=== PATIENT | female | born 1930 | race Caucasian/White ===

== ENCOUNTER → 2016-12-26 | Outpatient (CLI) | payer OTHER | LOC: BMCIMAGING 15:34 | PROVIDERS: ATTEND Internal Medicine Rheumatology | DX: M17.11 Unilateral primary osteoarthritis, right knee (principal) ==

== ENCOUNTER 2017-05-03 17:06 | Emergency (ER) | payer OTHER ==
[2017-05-03 17:17] VITALS: BP 162/92; PULSE 92; RESP 18; TEMP 98.1; O2SAT 94
--- NOTE | 2017-05-03 17:44 | EDPHY ---
H & P Stated Complaint: LEFT HIP PAIN AFTER A FALL Time Seen by Provider: 05/03/17 17:44 HPI/ROS: CHIEF COMPLAINT: Fall, groin pain, knee pain HISTORY OF PRESENT ILLNESS: Patient reports with her daughter at bedside. The patient was walking at her residence today when she tripped and fell. She was walking slowly a ground level and brace her fall with her left arm and her left hip. She denies striking her head. She denies loss of consciousness. No neck pain, headache, chest or back pain. Her only complaints are pain left groin pain left knee. The pain left groin is minimal at rest and when nonweightbearing. It is moderate to severe when she attempts to stand up. Same applied to the left knee. There is no numbness or tingling. No injury anywhere else. Difficulty ambulating due to the pain. Reports extensive osteoarthritis and rheumatoid arthritis with bilateral hip arthroplasties. Also partial left knee arthroplasty. No other associated or modifying factors. No use of anticoagulants. REVIEW OF SYSTEMS: Ten systems reviewed and are negative unless otherwise noted in the HPI PAST MEDICAL HISTORY: Osteoarthritis, rheumatoid arthritis, hip arthroplasty bilaterally, knee arthroplasty SOCIAL HISTORY: Nonsmoker. Lives in independent living here locally FAMILY HISTORY: Noncontributory EXAMINATION General Appearance: Alert, no distress Head: normocephalic, atraumatic. No Mancia sign. No raccoon eyes. No signs of trauma. Eyes: Pupils equal and round, no conjunctival pallor or injection ENT, Mouth: Mucous membranes moist. Airway patent. Bilateral arcus senilis Neck: Normal inspection, supple, non-tender. No crepitus, step-off or deformity. Respiratory: Lungs are clear to auscultation Cardiovascular: Regular rate and rhythm. No murmur. Pulses intact distally with symmetric DP and PT pulses 2+ Gastrointestinal: Abdomen is soft and nontender Back: non-tender, no bony abnormalities Neurological: GCS 15. A&O, nonfocal, strength is symmetric in all 4 limbs. Sensory intact in lower extremities bilaterally. Skin: Warm and dry, no rash. No lacerations abrasions or contusions Extremities: Nontender, no pedal edema Psychiatric: Mood and affect normal DIFFERENTIAL DIAGNOSES: Including but not limited to fracture, dislocation, strain, sprain, contusion, hematoma MDM: 5:45 p.m. Mechanical fall with left groin and left knee pain. No trauma to the head, neck , back, abdomen. No headache or neck pain. Complaints of pain only in the left groin and knee. Multiple previous orthopedic an ongoing rheumatologic injuries in pain. X-rays have been ordered. I suggested that we obtain a CT scan of the head and cervical spine but she has declined. She is adamant that she did not strike her head and does not want CT scans performed. 6:00 p.m. X-rays as read by me reveal extensive degenerative changes of all areas of x- ray. There is left hip arthroplasty with hardware that appears to be intact. There may be a fracture of the inferior iliac spine or ischium. Difficult to tell on this x-ray. No obvious fracture on the knee x-ray as read by me. Radiologist's interpretations are pending. 6:50 p.m. I discussed the x-rays with radiologist Dr. Jacobs. There are extensive chronic changes but no obvious acute injury. I re-evaluated the patient. I informed her that there are no clear fractures and I would like to ambulate her see how she tolerates her pain. She will be ambulated with assistance. 6:57 p.m. Patient has ambulated without any difficulty. She wants to be discharged home. She is stable on her feet with her cane. I did offer admission the hospital for evaluation for physical therapy, but she has a physical therapy appointment at home tomorrow. She would like to be discharged home. I do feel she is stable to do so. Her daughter is with her and is comfortable taking her home at this time. ER precautions discussed. She will follow up with primary care physician and her established orthopedist Dr. Reyes. SUPERVISION: Patient was evaluated in conjunction with the supervising physician. Please see their note for details. - Personal History Current Tetanus/Diphtheria Vaccine: Unsure Tetanus Vaccine Date: 2012 - Medical/Surgical History Hx Asthma: No Hx Chronic Respiratory Disease: No Hx Diabetes: No Hx Cardiac Disease: No Hx Renal Disease: No Hx Cirrhosis: No Hx Alcoholism: No Hx HIV/AIDS: No Hx Splenectomy or Spleen Trauma: No Other PMH: LEFT HIP FX AND REPAIR. G[place], RA, OA, PNA, [place] - Social History Smoking Status: Former smoker Constitutional: Initial Vital Signs Temperature (C) 98.1 F 05/03/17 17:13 Heart Rate 92 05/03/17 17:13 Respiratory Rate 18 05/03/17 17:13 Blood Pressure 162/92 H 05/03/17 17:13 O2 Sat (%) 94 05/03/17 17:13 O2 Delivery Mode Room Air Allergies/Adverse Reactions: promethazine HCl [From Phenergan] Allergy (Severe, Verified 05/03/17 17:18) cyclobenzaprine HCl [From Flexeril] Allergy (Intermediate, Verified 05/03/17 17: 18) gluten [Gluten] Allergy (Mild, Verified 05/03/17 17:18) Other-Enter Comments Sulfa (Sulfonamide Antibiotics) Allergy (Mild, Verified 05/03/17 17:18) Hives Wheat Containing *RETIRED-05/20/12 [Wheat Containing Prod] Allergy (Mild, Verified 05/03/17 17:18) Other-Enter Comments Home Medications: Medication Instructions Recorded Calcitriol [Calcitriol (*)] 0.25 mcg PO DAILY 06/19/14 Folic Acid [Folic Acid 1 MG (*)] 1 mg PO DAILY 06/19/14 Hydroxychloroquine Sulfate 200 mg PO BID 06/19/14 [Plaquenil 200 mg (*)] Multivitamins [Multivitamin (*)] 1 each PO DAILY 06/19/14 [place] 3/Dha/Epa/Vitamin D3 1 each PO DAILY 06/19/14 [[place]-3 + Vitamin D3 Softgel] Omeprazole [Prilosec 20 mg] 20 mg PO DAILY 06/19/14 inFLIXimab [Remicade Inj 100 mg 0 mg IV AD 06/19/14 (*)] Enoxaparin [Lovenox] 30 mg SC BID #20 syr 07/03/14 Hydrocodone/APAP 5/325 [[place] 1 - 2 tab PO Q4 PRN #30 tab 07/06/14 5/325 (*)] amLODIPine BESYLATE [Norvasc 5 mg 5 mg PO DAILY #30 tab 07/06/14 (*)] traMADol [Ultram 50 mg (*)] 50 mg PO Q4 #30 tab 07/06/14 amLODIPine BESYLATE [Norvasc 5 mg 5 mg PO HS PRN #30 tab 07/07/14 (*)] Medical Decision Making - Diagnostics Imaging Results: Imaging Impressions Hip X-Ray 05/03/17 17:43 Impression: 1. No definite acute osseous findings, with contour irregularity of the left superior pubic ramus grossly stable since 2013, suggesting sequela of old injury. 2. Old healed right pubic fracture. Findings discussed with Bryson Jacobs PA-C, on May 03, 2017 at 1825 hours. Knee X-Ray 05/03/17 17:43 Impression: No acute osseous findings. Departure - Departure Disposition: Home, Routine, Self-Care Clinical Impression: Fall Qualifiers: Encounter type: initial encounter Qualified Code(s): W19.XXXA - Unspecified fall, initial encounter Hip pain Qualifiers: Laterality: left Qualified Code(s): M25.552 - Pain in left hip Knee pain, acute Qualifiers: Laterality: left Qualified Code(s): M25.562 - Pain in left knee Condition: Good Instructions: Knee Sprain (ED), Hip Sprain (ED) Additional Instructions: 1. Follow up with your established primary care physician and orthopedist. 2. Return to the ER for any worsening pain, difficulty walking with her cane Referrals: Codie Pizarro MD [Primary Care Provider] - As per Instructions Colt Fitch MD [Medical Doctor] - As per Instructions
== END 2017-05-03 19:03 | disposition home or self-care (01) ==
DX: S79.912A Unspecified injury of left hip, initial encounter (principal); S89.92XA Unspecified injury of left lower leg, initial encounter; Z87.891 Personal history of nicotine dependence; W01.0XXA Fall on same level from slipping, tripping and stumbling without subsequent striking against object, initial encounter; Y92.009 Unspecified place in unspecified non-institutional (private) residence as the place of occurrence of the external cause; Y93.01 Activity, walking, marching and hiking

== ENCOUNTER 2017-07-31 08:10 | Emergency (ER) | payer OTHER ==
[2017-07-31 08:16] VITALS: BP 152/88; PULSE 84; RESP 16; TEMP 97.9; O2SAT 92
--- NOTE | 2017-07-31 08:39 | EDPHY ---
HPI/HX/ROS/PE/MDM Narrative: CHIEF COMPLAINT: Rash HPI: The patient is an 86 y/o female complaining of rash on her scalp onset Sunday, two days ago. On Sunday, she began experiencing tooth pain and took clindamycin. She accidentally took a double dose for a few days. On Sunday, she noticed a rash on the right side of her scalp and the corner of her right eye. Initially the rash was not painful but became painful over the past couple days. She describes the pain as stinging. She denies any pain or visual changes in her right eye. She denies recent cold or fever. REVIEW OF SYSTEMS: Aside from elements discussed in the HPI, a comprehensive 10-point review of systems was reviewed and is negative. PMH: Multiple joint surgeries and replacements SOCIAL HISTORY: Daughter at bedside, lives in [place], retired PHYSICAL EXAM: General:Patient is alert, in no acute distress. ENT:Eyes are normal to inspection. ENT inspection normal. Neck: Normal inspection. Full range of motion. Respiratory:No respiratory distress. Breath sounds normal bilaterally. Cardiovascular: Regular rate and rhythm. Strong peripheral pulses. Normal cap refill. Abdomen:The abdomen is nontender to palpation. There are no peritoneal signs. There are normal bowel sounds. Back: Normal to inspection. No tenderness to palpation. Skin: Vesicular rash to the right forehead with the corner of the eye involved. Extremities: Normal appearance. Full range of motion. Neuro: Oriented x3. Normal motor function. Normal sensory function. MDM: This patient presents with signs and symptoms of Shingles. Although the rash is quite near her eye, she has no ocular symptoms whatsoever. I suspect her earlier dental pain was likely secondary to shingles rather than dental issue given coincidence of it being right upper molar, and I explained that she likely does not need to take clindamycin in addition to antivirals, but told her to discuss this with her dentist. General Time Seen by Provider: 07/31/17 08:23 Initial Vital Signs: Initial Vital Signs Temperature (C) 36.6 C 07/31/17 08:11 Heart Rate 84 07/31/17 08:11 Respiratory Rate 16 07/31/17 08:11 Blood Pressure 152/88 H 07/31/17 08:11 O2 Sat (%) 92 07/31/17 08:11 O2 Delivery Mode Nasal Cannula Allergies/Adverse Reactions: promethazine HCl [From Phenergan] Allergy (Severe, Verified 07/31/17 08:11) cyclobenzaprine HCl [From Flexeril] Allergy (Intermediate, Verified 07/31/17 08: 11) gluten [Gluten] Allergy (Mild, Verified 07/31/17 08:11) Other-Enter Comments Sulfa (Sulfonamide Antibiotics) Allergy (Mild, Verified 07/31/17 08:11) Hives Wheat Containing *RETIRED-05/20/12 [Wheat Containing Prod] Allergy (Mild, Verified 07/31/17 08:11) Other-Enter Comments Home Medications: Medication Instructions Recorded Calcitriol [Calcitriol (*)] 0.25 mcg PO DAILY 06/19/14 Folic Acid [Folic Acid 1 MG (*)] 1 mg PO DAILY 06/19/14 Hydroxychloroquine Sulfate 200 mg PO BID 06/19/14 [Plaquenil 200 mg (*)] Multivitamins [Multivitamin (*)] 1 each PO DAILY 06/19/14 [place] 3/Dha/Epa/Vitamin D3 1 each PO DAILY 06/19/14 [[place]-3 + Vitamin D3 Softgel] Omeprazole [Prilosec 20 mg] 20 mg PO DAILY 06/19/14 inFLIXimab [Remicade Inj 100 mg 0 mg IV AD 06/19/14 (*)] Enoxaparin [Lovenox] 30 mg SC BID #20 syr 07/03/14 Hydrocodone/APAP 5/325 [[place] 1 - 2 tab PO Q4 PRN #30 tab 07/06/14 5/325 (*)] amLODIPine BESYLATE [Norvasc 5 mg 5 mg PO DAILY #30 tab 07/06/14 (*)] traMADol [Ultram 50 mg (*)] 50 mg PO Q4 #30 tab 07/06/14 amLODIPine BESYLATE [Norvasc 5 mg 5 mg PO HS PRN #30 tab 07/07/14 (*)] Valacyclovir HCl [Valtrex] 1,000 mg PO TID #21 tab 07/31/17 Departure - Departure Disposition: Home, Routine, Self-Care Clinical Impression: Shingles Qualifiers: Herpes zoster complications: without complications Qualified Code(s): B02.9 - Zoster without complications Condition: Good Instructions: Shingles (ED) Additional Instructions: 1. Avoid contact with your rash. Wash your hands frequently, especially after touching your face. 2. If you feel like there is something in your eye return to the ED or visit an eye doctor. 3. Return to the ED for worsening of condition. Referrals: Codie Pizarro MD [Primary Care Provider] - As per Instructions Prescriptions: Valacyclovir HCl [Valtrex] 1,000 mg PO TID #21 tab Report Scribed for: Connor Chan Report Scribed by: Muna Stallworth Date of Report: 07/31/17 Time of Report: 08:47 Physician Review and Approval Statement: Portions of this note were transcribed by an ED scribe. I personally performed the history, physical exam, and medical decision making; and confirm the accuracy of the information in the transcribed note.
== END 2017-07-31 08:56 | disposition home or self-care (01) ==
DX: B02.9 Zoster without complications (principal)

== ENCOUNTER 2017-08-05 14:43 | Emergency (ER) | payer OTHER ==
[2017-08-05 14:51] VITALS: BP 132/80; PULSE 86; RESP 16; TEMP 98.8; O2SAT 96
--- NOTE | 2017-08-05 15:05 | EDPHY ---
HPI/HX/ROS/PE/MDM Narrative: CHIEF COMPLAINT: Right eye pain and redness HPI: The patient is an 86 y/o female complaining of right eye pain and redness. She was here on Sunday, 5 days ago, with pain and a mild rash on her forehead. She was diagnosed with shingles and prescribed Valtrex, which she took as prescribed. She was advised to come back to the ED if she experienced pain in her eye. Today she began to have pain in both her right eyelid and the inside of her eye. In her right eye it feels as if something is inside of it. Denies vision changes, fever, numbness or other pertinent symptoms. Prior medical records reviewed including ED visit with Dr. Chan on 07/31/17. REVIEW OF SYSTEMS: Aside from elements discussed in the HPI, a comprehensive 10-point review of systems was reviewed and is negative. PMH: Multiple joint surgeries and replacements SOCIAL HISTORY: Friends at bedside, lives in [place], retired PHYSICAL EXAM: General:Patient is alert, in no acute distress. ENT:Eyes are normal to inspection. Fluorescein exam shows no signs of lesions or streaming on cornea ENT inspection normal. Neck: Normal inspection. Full range of motion. Respiratory:No respiratory distress. Breath sounds normal bilaterally. Cardiovascular: Regular rate and rhythm. Strong peripheral pulses. Normal cap refill. Abdomen:The abdomen is nontender to palpation. There are no peritoneal signs. There are normal bowel sounds. Back: Normal to inspection. No tenderness to palpation. Skin: Vesicular rash consistent with shingles on right upper quadrant of face. Normal color. Warm and dry. Extremities: Normal appearance. Full range of motion. Neuro: Oriented x3. Normal motor function. Normal sensory function. ED Course: 1511: Preformed eye exam with Fluorecin dye; no signs of lesions or streaming on cornea Reassessed patient and discussed return precautions. Patient is comfortable with this plan. MDM: This patient with shingles returns for concern of eye pain. This obviously raises concern for zoster ophthalmicus, but thankfully flouroscein exam is normal. I think her eye pain is secondary to facial nerve rather than true ocular involvement. Patient already on antivirals and I see no evidence of vision-threatening disease. We discussed strict return precautions. General Time Seen by Provider: 08/05/17 14:58 Initial Vital Signs: Initial Vital Signs Temperature (C) 37.1 C 08/05/17 14:49 Heart Rate 86 08/05/17 14:49 Respiratory Rate 16 08/05/17 14:49 Blood Pressure 132/80 H 08/05/17 14:49 O2 Sat (%) 96 08/05/17 14:49 O2 Delivery Mode Room Air Allergies/Adverse Reactions: promethazine HCl [From Phenergan] Allergy (Severe, Verified 07/31/17 08:11) cyclobenzaprine HCl [From Flexeril] Allergy (Intermediate, Verified 07/31/17 08: 11) gluten [Gluten] Allergy (Mild, Verified 07/31/17 08:11) Other-Enter Comments Sulfa (Sulfonamide Antibiotics) Allergy (Mild, Verified 07/31/17 08:11) Hives Wheat Containing *RETIRED-05/20/12 [Wheat Containing Prod] Allergy (Mild, Verified 07/31/17 08:11) Other-Enter Comments Home Medications: Medication Instructions Recorded Calcitriol [Calcitriol (*)] 0.25 mcg PO DAILY 06/19/14 Folic Acid [Folic Acid 1 MG (*)] 1 mg PO DAILY 06/19/14 Hydroxychloroquine Sulfate 200 mg PO BID 06/19/14 [Plaquenil 200 mg (*)] Multivitamins [Multivitamin (*)] 1 each PO DAILY 06/19/14 [place] 3/Dha/Epa/Vitamin D3 1 each PO DAILY 06/19/14 [[place]-3 + Vitamin D3 Softgel] Omeprazole [Prilosec 20 mg] 20 mg PO DAILY 06/19/14 inFLIXimab [Remicade Inj 100 mg 0 mg IV AD 06/19/14 (*)] Enoxaparin [Lovenox] 30 mg SC BID #20 syr 07/03/14 Hydrocodone/APAP 5/325 [[place] 1 - 2 tab PO Q4 PRN #30 tab 07/06/14 5/325 (*)] amLODIPine BESYLATE [Norvasc 5 mg 5 mg PO DAILY #30 tab 07/06/14 (*)] traMADol [Ultram 50 mg (*)] 50 mg PO Q4 #30 tab 07/06/14 amLODIPine BESYLATE [Norvasc 5 mg 5 mg PO HS PRN #30 tab 07/07/14 (*)] Valacyclovir HCl [Valtrex] 1,000 mg PO TID #21 tab 07/31/17 Departure - Departure Disposition: Home, Routine, Self-Care Clinical Impression: Shingles Condition: Good Instructions: Shingles (ED) Additional Instructions: 1. It is okay to take Aleve and Tylenol 2. Continue taking your medications previously prescribed to you. 3. Avoid contact with your rash. Wash your hands frequently, especially after contacting your face. 4. Return to the ED for worsening of your condition. Referrals: Codie Pizarro MD [Primary Care Provider] - As per Instructions Report Scribed for: Connor Chan Report Scribed by: Sharla Blakely Date of Report: 08/05/17 Time of Report: 15:05 Physician Review and Approval Statement: Portions of this note were transcribed by an ED scribe. I personally performed the history, physical exam, and medical decision making; and confirm the accuracy of the information in the transcribed note.
[2017-08-05] MEDS ORDERED: FLUORESCEIN SODIUM 1 MG STRIP OP ONE ×2 (15:09→15:18)
[2017-08-05] MEDS ORDERED: PROPARACAINE 0.5% 15 ML OPHT DROP ONE (15:09)
[2017-08-05] MEDS ORDERED: PROPARACAINE 0.5% 15 ML OPHT DROP OP ONE (15:17)
== END 2017-08-05 15:21 | disposition home or self-care (01) ==
DX: B02.9 Zoster without complications (principal)

== ENCOUNTER → 2018-01-24 | Outpatient (CLI) | payer OTHER | LOC: FIMAGING 12:47 | PROVIDERS: ATTEND Physician Assistant | DX: M51.36 Other intervertebral disc degeneration, lumbar region (principal); M48.061 Spinal stenosis, lumbar region without neurogenic claudication; M43.16 Spondylolisthesis, lumbar region; M99.73 Connective tissue and disc stenosis of intervertebral foramina of lumbar region ==

== ENCOUNTER 2018-06-29 19:05 | Emergency (ER) | payer OTHER ==
--- NOTE | 2018-06-29 19:16 | EDPHY ---
H & P Time Seen by Provider: 06/29/18 19:15 HPI/ROS: CHIEF COMPLAINT: Fall from standing HISTORY OF PRESENT ILLNESS: Patient is an 87-year-old female who came out of the bar with friends and fell and landed on her face. She has an abrasion to her upper lip and dental fracture and a abrasion to the bridge of her nose and a small hematoma to her forehead. She did not get knocked out. She also complains of left lateral neck pain. She denies bony pain. She has a mild headache. No vision changes. No hearing changes. She has a small bruise to her right knee but denies other injuries. She has been ambulatory. Severity: Moderate Modifying factors: None REVIEW OF SYSTEMS: Constitutional: denies: chills, fever, recent illness, recent injury EENTM: See HPI Respiratory: denies: cough, shortness of breath Cardiac: denies: chest pain, irregular heart rate, lightheadedness, palpitations Gastrointestinal/Abdominal: denies: abdominal pain, diarrhea, nausea, vomiting, blood streaked stools Genitourinary: denies: dysuria, frequency, hematuria, pain Musculoskeletal: denies: joint pain, muscle pain Skin: See HPI Neurological: denies: headache, numbness, paresthesia, tingling, dizziness, weakness Hematologic/Lymphatic: denies: blood clots, easy bleeding, easy bruising Immunologic/allergic: denies: HIV/AIDS, transplant 10 systems reviewed and negative except as noted EXAM: GENERAL: Well-appearing, well-nourished and in no acute distress. HEAD: Hematoma above right eyebrow, no crepitus EYES: Pupils equal round and reactive to light, extraocular movements intact, sclera anicteric, conjunctiva are normal. ENT: No epistaxis, abrasion to the bridge of nose, dental fracture tooth 8. No pulp visible. She states that this is a cap. Small v-shaped laceration on the lip. NECK: Normal range of motion, supple without lymphadenopathy or JVD. LUNGS: Breath sounds clear to auscultation bilaterally and equal. No wheezes rales or rhonchi. HEART: Regular rate and rhythm without murmurs, rubs or gallops. ABDOMEN: Soft, nontender, normoactive bowel sounds. No guarding, no rebound. No masses appreciated. BACK: No CVA tenderness, no spinal tenderness, step-offs or deformities EXTREMITIES: Normal range of motion, no pitting or edema. No clubbing or cyanosis. NEUROLOGICAL: Cranial nerves II through XII grossly intact. Normal speech, normal gait. 5/5 strength, normal movement in all extremities, normal sensation , normal reflexes PSYCH: Normal mood, normal affect. SKIN: Bruise to left knee, abrasion to upper lip over the frenulum, abrasion to bridge of nose, hematoma above right eyebrow. Source: Patient Exam Limitations: No limitations - Personal History Tetanus Vaccine Date: 2012 - Medical/Surgical History Hx Asthma: No Hx Chronic Respiratory Disease: No Hx Diabetes: No Hx Cardiac Disease: No Hx Renal Disease: No Hx Cirrhosis: No Hx Alcoholism: No Hx HIV/AIDS: No Hx Splenectomy or Spleen Trauma: No Other PMH: LEFT HIP FX AND REPAIR. Gerd, RA, OA, PNA, JENA - Family History Significant Family History: No pertinent family hx - Social History Smoking Status: Former smoker Alcohol Use: Sober Drug Use: None Constitutional: Initial Vital Signs Temperature (C) 36.5 C 06/29/18 19:22 Heart Rate 79 06/29/18 19:22 Respiratory Rate 18 06/29/18 19:22 Blood Pressure 162/92 H 06/29/18 19:22 O2 Sat (%) 95 06/29/18 19:22 O2 Delivery Mode Room Air Allergies/Adverse Reactions: promethazine HCl [From Phenergan] Allergy (Severe, Verified 06/29/18 19:25) cyclobenzaprine HCl [From Flexeril] Allergy (Intermediate, Verified 06/29/18 19: 25) gluten [Gluten] Allergy (Mild, Verified 06/29/18 19:25) Other-Enter Comments Sulfa (Sulfonamide Antibiotics) Allergy (Mild, Verified 06/29/18 19:25) Hives Wheat Containing *RETIRED-05/20/12 [Wheat Containing Prod] Allergy (Mild, Verified 06/29/18 19:25) Other-Enter Comments Home Medications: Medication Instructions Recorded Calcitriol [Calcitriol (*)] 0.25 mcg PO DAILY 06/19/14 Folic Acid [Folic Acid 1 MG (*)] 1 mg PO DAILY 06/19/14 Hydroxychloroquine Sulfate 200 mg PO BID 06/19/14 [Plaquenil 200 mg (*)] Multivitamins [Multivitamin (*)] 1 each PO DAILY 06/19/14 [place] 3/Dha/Epa/Vitamin D3 1 each PO DAILY 06/19/14 [[place]-3 + Vitamin D3 Softgel] Omeprazole [Prilosec 20 mg] 20 mg PO DAILY 06/19/14 inFLIXimab [Remicade Inj 100 mg 0 mg IV AD 06/19/14 (*)] Enoxaparin [Lovenox] 30 mg SC BID #20 syr 07/03/14 Hydrocodone/APAP 5/325 [[place] 1 - 2 tab PO Q4 PRN #30 tab 07/06/14 5/325 (*)] amLODIPine BESYLATE [Norvasc 5 mg 5 mg PO DAILY #30 tab 07/06/14 (*)] traMADol [Ultram 50 mg (*)] 50 mg PO Q4 #30 tab 07/06/14 amLODIPine BESYLATE [Norvasc 5 mg 5 mg PO HS PRN #30 tab 07/07/14 (*)] Valacyclovir HCl [Valtrex] 1,000 mg PO TID #21 tab 07/31/17 ED Images - Head Mouth: 1 - Dental fracture, no visible pulp. No laxity Medical Decision Making - Diagnostics Imaging Results: Imaging Impressions Cervical Spine CT 06/29/18 19:10 Impression: 1. No acute posttraumatic abnormality identified. If there is persistent pain or neurologic deficit, consider MRI and/or flexion and extension views, if clinically indicated. 2. Multilevel degenerative change and spondylolistheses. 3. 1.4 cm right upper lobe groundglass opacity. Follow-up CT is recommended in six months per Fleischner Society guidelines. 4. Nodular thyroid including a 2 cm probable cyst in the right thyroid. Thyroid ultrasound could be performed for further evaluation. 5. Additional findings, as above. Findings discussed with LIZZIE GAY 06/29/2018 at 19:58. Head CT 06/29/18 19:10 Impression: 1. No acute intracranial findings. 2. Diffuse cerebral atrophy with periventricular and subcortical low attenuation consistent with chronic microvascular ischemic gliosis. Findings discussed with LIZZIE GAY 06/29/2018 at 19:58. Imaging: Discussed imaging studies w/ fisher scallop Radiologist Procedures: Procedure: Laceration repair. Verbal consent was obtained from the patient. The 1.5 cm upper lip laceration was anesthetized with 0% bupivacaine locally infiltrated. The wound was irrigated copiously according to protocol, draped and explored to its base. It was approximately 1/2 cm deep. There were no deep structures involved. No tendon, nerve, or vascular injury was identified when explored through full range of motion. No foreign body was identified. The wound was repaired with 5.0 chromic gut, 4 sutures, interrupted. The wound repair was moderately complex with flap realignment, no vermilion border involvement. without wound margin revisement or multiple flap alignment. The procedure was performed by myself. A dressing was then placed with sterile gauze. ED Course/Re-evaluation: Patient tolerated the procedure well. She is relieved by the CT scan results. She and her family are eager to go home. We discussed indications for returning. Differential Diagnosis: Partial list of the Differential diagnosis considered include but were not limited to; head injury, neck injury, lip laceration, dental fracture and although unlikely based on the history and physical exam, I also considered eye injury, facial fracture. I discussed these differential diagnoses and the plan with the patient as well as the usual and expected course. The patient understands that the diagnosis is provisional and that in medicine we are not always correct and that further workup is often warranted. Usual and customary warnings were given. All of the patient's questions were answered. The patient was instructed to return to the emergency department should the symptoms at all worsen or return, otherwise to followup with the physician as we discussed. Departure - Departure Disposition: Home, Routine, Self-Care Clinical Impression: Laceration, Hematoma, Abrasion Dental trauma Qualifiers: Encounter type: initial encounter Qualified Code(s): S09.93XA - Unspecified injury of face, initial encounter Condition: Fair Instructions: Care For Your Stitches (ED), Laceration (ED), Soft Diet (ED) Additional Instructions: Follow-up with your dentist for repair of your front tooth. Referrals: Patient,NotPresent [Unknown] - As per Instructions
[2018-06-29 20:43] VITALS: BP 150/87
== END 2018-06-29 20:46 | disposition home or self-care (01) ==
LOC: EDUNIT#
PROC: 0HQ1XZZ Repair Face Skin, External Approach (ICD-10-PCS; principal; 2018-06-29)
DX: S01.511A Laceration without foreign body of lip, initial encounter (principal); S02.5XXA Fracture of tooth (traumatic), initial encounter for closed fracture; M54.2 Cervicalgia; W01.0XXA Fall on same level from slipping, tripping and stumbling without subsequent striking against object, initial encounter; Y92.59 Other trade areas as the place of occurrence of the external cause